=== PATIENT | female | born 1940 | race Caucasian/White ===

== ENCOUNTER 2016-11-02 21:46 | Inpatient (IN) | payer OTHER ==
[~2016-11-02] VITALS: Ht 157.5 cm; Wt 75.1 kg
[~2016-11-02 21:46] MED LIST: HYDROCODON-ACE1 EAC7 PO; KEFLEX250 MG PO
[2016-11-02 22:21] LABS: EOSINOPHIL (%) 1.3 % (0-5); EOSINOPHIL COUNT 0.1 K/uL (0-0.3); HEMATOCRIT 37.4 % (36.0-46.0); IMMATURE GRANULOCYTE (%) 0.5 % (0.0-0.7); IMMATURE GRANULOCYTE COUNT 0.4 K/uL; LYMPHOCYTE COUNT 1.4 K/uL (1.0-2.8); MCH 29.3 PG (29.0-34.0); MCHC 33.4 G/DL (30.0-36.0); MCV 87.6 FL (83-99); MEAN PLAT.VOLUME 10.6 uM^3 (9.5-12.4); MONOCYTE (%) 11.7 % (3-12); NEUTROPHIL (%) 70.8 % (45-76); NEUTROPHIL COUNT 6.2 K/uL (1.8-6.4); PLATELET COUNT 195 K/uL (156-360); RBC DIS.WIDTH-CV 13.3 % (11.8-14.6); RBC DIS.WIDTH-SD 42.2 % (39-53); RED BLOOD COUNT 4.27 M/uL (3.80-5.20); WHITE BLOOD COUNT 8.8 K/uL (4.1-10.2)
[2016-11-02 23:03] LABS: AMYLASE 50 IU/L (1-118)
[2016-11-02 23:04] LABS: CHLORIDE 106 mEq/L (99-109); SODIUM 138 mEq/L (136-147)
[2016-11-02 23:05] LABS: GLUCOSE 122 mg/dL (70-99)
[2016-11-02 23:06] LABS: INTER. NORMALIZED RATIO 1.1; PROTHROMBIN TIME 10.9 (9.2-11.2); PTT 29.6 (25-32)
[2016-11-02 23:07] LABS: ANION GAP 11 MEQ/L (2-14)
[2016-11-02 23:08] LABS: SERUM ETHYL ALCOHOL < 10 mg/dL
[2016-11-02 23:09] LABS: GFR ESTIMATE (CALCULATED) 51 mL/min/
[2016-11-02 23:10] LABS: UREA NITROGEN (BUN) 32 mg/dL (9-23)
[2016-11-02 23:12] LABS: LIPASE 32 U/L (1.0-51.0)
[2016-11-02] MEDS ORDERED: LEVOTHYROXINE88 MCG PO (23:12)
[2016-11-02] MEDS ORDERED: ESCITALOPRAM OX10 MG PO (23:12)
[2016-11-02 23:15] LABS: TROP-I INTERPRETATION NEGATIVE; TROPONIN-I < 0.01 ng/mL (0.0-0.30)
[2016-11-02 23:36] LABS: ADD MIUA? YES; BILIRUBIN NEGATIVE; BLOOD LARGE; COLOR YELLOW ((YELLOW)); GLUCOSE (STRIP) NEGATIVE; KETONES TRACE; LEUKOCYTES LARGE; NITRITE POSITIVE; PROTEIN (STRIP) 100; SPECIFIC GRAVITY 1.019 (1.000-1.030)
[2016-11-02 23:47] LABS: AMPHETAMINE NEGATIVE (500 ng/mL); BARBITURATES NEGATIVE (200 ng/mL); BENZODIAZEPINES NEGATIVE (150 ng/mL); COCAINE NEGATIVE (150 ng/mL); INTERNAL CONTROLS VALID? YES; METHADONE NEGATIVE (200 ng/mL); METHAMPHETAMINE NEGATIVE (500 ng/mL); OPIATES (MORPHINE) NEGATIVE (100 ng/mL); OXYCODONE NEGATIVE (100 ng/mL); PHENCYCLIDINE NEGATIVE (25 ng/mL); PROPOXYPHENE NEGATIVE (300 ng/mL); THC CANNABINOIDS NEGATIVE (50 ng/mL); TRICYCLIC ANTIDEPRESSANTS NEGATIVE (300 ng/mL)
[2016-11-03] LABS: EPITHELIAL CELLS RARE; MUCUS NONE SEEN; RED BLOOD CELLS NONE SEEN /HPF (0-5); WHITE BLOOD CELLS TNTC /HPF (0-5)
[2016-11-03 00:01] LABS: BACTERIA 4+; CASTS NONE SEEN /LPF; CRYSTALS NONE SEEN; UCUL ADDED? YES
[2016-11-03 02:14] VITALS: BP 173/78
[2016-11-03 05:24] LABS: HDL CHOLESTEROL 37 MG/DL (Desirable>=50); LDL CHOLESTEROL 113 mg/dL (Desirable<100); NON-HDL CHOLESTEROL 133 mg/dL (Desirable<160); TOTAL CHOLESTEROL 170 mg/dL (Desirable<200); TRIGLYCERIDES 102 MG/DL (Normal: <150)
[2016-11-03 07:00] LABS: HEMATOCRIT 32.6 % (36.0-46.0); MCH 29.2 PG (29.0-34.0); MCHC 32.8 G/DL (30.0-36.0); MCV 88.8 FL (83-99); MEAN PLAT.VOLUME 11.1 uM^3 (9.5-12.4); PLATELET COUNT 189 K/uL (156-360); RBC DIS.WIDTH-CV 13.6 % (11.8-14.6); RBC DIS.WIDTH-SD 44.2 % (39-53); RED BLOOD COUNT 3.67 M/uL (3.80-5.20); WHITE BLOOD COUNT 7.3 K/uL (4.1-10.2)
[2016-11-03 07:35] LABS: Estimated Average Glucose 120 mg/dL (70-123); HEMOGLOBIN A1c (GLYCOHEMOGLOB) 5.8 % HGB (Below 5.7)
[2016-11-03 12:16] VITALS: BP 139/67
[2016-11-03 12:29] LABS: ANION GAP 11 MEQ/L (2-14); CHLORIDE 105 MEQ/L (99-109); GFR ESTIMATE (CALCULATED) > 59 mL/min/; GLUCOSE 104 mg/dL (70-99); POTASSIUM 3.3 MEQ/L (3.7-5.4); SAMPLE HEMOLYSIS CHECK 0; SAMPLE ICTERIC CHECK 0; SAMPLE LIPEMIA CHECK 0; SODIUM 141 MEQ/L (136-147); UREA NITROGEN (BUN) 28 mg/dL (9-23)
[2016-11-03 16:00] VITALS: BP 144/65
[2016-11-03 20:46] VITALS: BP 152/64
[2016-11-03 23:27] VITALS: BP 155/67
[2016-11-04 04:40] VITALS: BP 162/66
[2016-11-04 07:06] LABS: HEMATOCRIT 36.2 % (36.0-46.0); MCH 27.7 PG (29.0-34.0); MCHC 31.2 G/DL (30.0-36.0); MCV 88.7 FL (83-99); MEAN PLAT.VOLUME 11.3 uM^3 (9.5-12.4); PLATELET COUNT 205 K/uL (156-360); RBC DIS.WIDTH-CV 13.5 % (11.8-14.6); RBC DIS.WIDTH-SD 44.1 % (39-53); RED BLOOD COUNT 4.08 M/uL (3.80-5.20); WHITE BLOOD COUNT 6.9 K/uL (4.1-10.2)
[2016-11-04 07:52] LABS: ANION GAP 9 MEQ/L (2-14); CHLORIDE 108 MEQ/L (99-109); GFR ESTIMATE (CALCULATED) 51 mL/min/; GLUCOSE 95 mg/dL (70-99); SAMPLE HEMOLYSIS CHECK 0; SAMPLE ICTERIC CHECK 0; SAMPLE LIPEMIA CHECK 0; SODIUM 141 MEQ/L (136-147); UREA NITROGEN (BUN) 24 mg/dL (9-23)
[2016-11-04 08:05] LABS: POTASSIUM 4.1 MEQ/L (3.7-5.4)
[2016-11-04 08:27] VITALS: BP 149/64
[2016-11-04 12:07] VITALS: BP 145/63
[2016-11-04 15:00] VITALS: BP 146/67
[2016-11-04 20:48] VITALS: BP 151/62
[2016-11-04 23:37] VITALS: BP 142/66
[2016-11-05 04:47] VITALS: BP 152/60
[2016-11-05 07:55] VITALS: BP 154/76
[2016-11-05 11:03] VITALS: BP 147/69
[2016-11-05 15:14] VITALS: BP 130/59
[2016-11-05 20:01] VITALS: BP 153/65
[2016-11-06 03:59] VITALS: BP 139/63
[2016-11-06 08:32] VITALS: BP 131/62; BP 140/79
[2016-11-06] MEDS ORDERED: PRAVASTATIN SOD40 MG PO (09:08)
[2016-11-06] MEDS ORDERED: ASPIR-LOW81 MG PO (09:08)
[2016-11-06] MEDS ORDERED: ATORVASTATIN CA40 MG PO (09:11)
== END 2016-11-06 11:15 | DRG 689 ==
LOC: EME → EDBD 21:46 → EME 21:46 → 5SOUTH 11-03 00:44 → EDOF 11-03 00:44 → 5SOUTH 11-03 01:44
PROVIDERS: Emergency Medicine; Hospitalist; Physician Assistant Medical
DX: N39.0 Urinary tract infection, site not specified (principal); G93.41 Metabolic encephalopathy; I69.351 Hemiplegia and hemiparesis following cerebral infarction affecting right dominant side; E87.0 Hyperosmolality and hypernatremia; B96.1 Klebsiella pneumoniae [K. pneumoniae] as the cause of diseases classified elsewhere; I69.320 Aphasia following cerebral infarction; I10 Essential (primary) hypertension; R26.2 Difficulty in walking, not elsewhere classified; E78.5 Hyperlipidemia, unspecified; E03.9 Hypothyroidism, unspecified; E66.9 Obesity, unspecified; F32.9 Major depressive disorder, single episode, unspecified
CPT/HCPCS: 70450; 70551; 71010; 80048; 80061; 81003; 82150; 83036; 83690; 84484; 85025; 85027; 85610; 85730; 86850; 86900; 86901; 87077; 87086; 87186; 92523 GN; 92610 GN; 93005; 99281; 99285; G0480; J0696; J1644; J7050